=== PATIENT | male | born 1955 | race Caucasian/White ===

== ENCOUNTER → 2018-05-06 | Outpatient (REF) | payer OTHER | LOC: M LAB REF 17:41 | DX: D21.0 Benign neoplasm of connective and other soft tissue of head, face and neck (principal) ==

== ENCOUNTER 2019-12-15 10:15 | Inpatient (IN) | payer OTHER ==
[~2019-12-15] VITALS: Ht 167.6 cm; Wt 71.2 kg
[2019-12-15] MEDS ORDERED: FENO145T7 PO (10:27)
[2019-12-15] MEDS ORDERED: IBUP-1114 PO (10:27)
[2019-12-15] MEDS ORDERED: FISH1000 PO (10:27)
[2019-12-15] MEDS ORDERED: AMLO2.5C4 PO (10:27)
[2019-12-15] MEDS ORDERED: CENTTAB16 PO (10:27)
[2019-12-15] MEDS ORDERED: PARO40TA2 PO (10:27)
[2019-12-15] MEDS ORDERED: CETI5SOL3 PO (10:27)
[2019-12-15 11:25] LABS: BASO # 0.1 10^3/uL (0.0-0.2); BASO % 1.2 % (0.0-1.0); EOS # 0.2 10^3/uL (0.0-0.5); EOS % 2.4 % (0.0-3.0); HEMATOCRIT 42.2 % (42.0-52.0); HEMOGLOBIN 14.6 g/dl (13.5-17.5); LYMPH # 2.1 10^3/uL (1.5-5.0); LYMPH % 28.9 % (24.0-44.0); MEAN CORPUSCULAR HEMOGLOBIN 30.9 pg (27.0-33.0); MEAN CORPUSCULAR HGB CONC 34.6 g/dl (32.0-36.5); MEAN CORPUSCULAR VOLUME 89.4 fl (80.0-96.0); MONO # 0.4 10^3/uL (0.0-0.8); MONO % 5.9 % (0.0-5.0); NEUTROPHILS # 4.5 10^3/uL (1.5-8.5); NEUTROPHILS % 60.9 % (36.0-66.0); PLATELET COUNT, AUTOMATED 378 10^3/uL (150-450); RED BLOOD COUNT 4.72 10^6/uL (4.30-6.10); WHITE BLOOD COUNT 7.4 10^3/uL (4.0-10.0)
[2019-12-15 11:57] LABS: ALT/SGPT 26 U/L (12-78); BILIRUBIN,DIRECT < 0.1 MG/DL (0.0-0.2); BILIRUBIN,TOTAL 0.7 MG/DL (0.2-1.0); BLOOD UREA NITROGEN 17 MG/DL (7-18); CALCIUM LEVEL 9.8 MG/DL (8.8-10.2); CARBON DIOXIDE LEVEL 25 MEQ/L (21-32); CHLORIDE LEVEL 102 MEQ/L (98-107); CREATININE FOR GFR 0.85 MG/DL (0.70-1.30); GLOMERULAR FILTRATION RATE > 60.0 (>49); GLUCOSE, FASTING 258 MG/DL (70-100); LIPASE 113 U/L (73-393); POTASSIUM SERUM 4.8 MEQ/L (3.5-5.1); SODIUM LEVEL 133 MEQ/L (136-145); TOTAL PROTEIN 7.9 GM/DL (6.4-8.2)
[2019-12-15] MEDS ORDERED: LIDOCAINE 5% (LIDODERM) PATCH TD ONE (12:15)
[2019-12-15] MEDS ORDERED: ACETAMINOPHEN 325 MG TAB PO ONE (12:15)
[2019-12-15] MEDS ORDERED: CYCLOBENZAPRINE 5MG TABLET PO ONE (12:15)
--- NOTE | 2019-12-15 12:34 | REP ---
CT LUMBAR SPINE: 12/15/2019 INDICATION: Low back pain . TECHNIQUE: Nonenhanced axial CT images of the lower lumbar spine were obtained with coronal and sagittal reconstructions provided. COMPARISON: MRI lumbar spine dated 09/13/2016. FINDINGS: There is no acute fracture, subluxation, or dislocation. There is an area of heterogeneous attenuation within the posterosuperior L2 vertebral body which did not correspond to abnormal signal on the previous MRI. Aortoiliac atherosclerotic disease is present. There is no evidence of hemorrhage within the spinal canal or severe spinal canal narrowing. The paraspinal soft tissues are unremarkable with the exception of the atherosclerotic disease. IMPRESSION: No acute fracture or additional acute pathology. Area of heterogeneous attenuation within the L2 vertebral body for which gadolinium enhanced MRI is recommended for further evaluation as neoplasm is not excluded. Aortoiliac atherosclerotic disease. Electronically Signed by Dread Bright DO 12/17/2019 08:37 A
--- NOTE | 2019-12-15 14:16 | REP ---
REASON: Bilateral hip pain. PRIORS: None. AP pelvis and two views of each hip were obtained. AP PELVIS: There is no acute fracture. Asymmetric hip joint space narrowing is seen bilaterally with bilateral femoral head cam deformities. Two views of the right hip show a cam deformity with asymmetric hip joint space narrowing without buttressing, fracture, or dislocation. Two views of the left hip shows asymmetric hip joint space narrowing with a cam deformity without buttressing, fracture, or dislocation. IMPRESSION: Chronic changes. Electronically Signed by Chivo Cueto DO 12/15/2019 05:05 P
--- NOTE | 2019-12-15 14:25 | REP ---
KUB: History of constipation and lower abdominal pain. The latest prior for comparison is 06/03/2005. FINDINGS: KUB shows the intestinal gas pattern to be nonspecific. The organ silhouettes insofar as delineated are unremarkable. There is no evidence of free intraperitoneal air. The stool pattern is within normal limits. IMPRESSION: Nonspecific. Electronically Signed by Chivo Cueto DO 12/15/2019 05:05 P
[2019-12-15] MEDS ORDERED: PROHANCE 279.3MG/ML 15ML VIAL As Ordered ONE (15:07)
--- NOTE | 2019-12-15 15:59 | REP ---
MRI LUMBAR SPINE: 12/15/2019 INDICATION: Low back pain. COMPARISON: CT lumbar spine completed earlier today. TECHNIQUE: Multiplanar short and long TR sequences of the lumbar spine were performed including post-gadolinium imaging. FINDINGS: Heterogenous abnormal signal is present within the L2 vertebral body as well as centrally within L5 with corresponding pathologic gadolinium enhancement. There are no areas of impression deformities of the vertebral bodies. No focal disc herniations are present. Endplate degenerative sequelae are noted at L4-5. These disc bulges are present at L4-5 and L5-S1 without severe spinal canal or neural foraminal narrowing. No significant paraspinal soft tissue abnormalities are detected. Intraosseous hemangioma is present within the posterior aspect of the T12 vertebral body. IMPRESSION: Abnormal marrow signal and corresponding pathologic gadolinium enhancement within L2 and L5 concerning for metastases. Metastatic workup by imaging is recommended. No significant spinal canal or neural foraminal narrowing. Electronically Signed by Dread Bright DO 12/17/2019 08:40 A
[2019-12-15] MEDS ORDERED: ALL10TAB3 PO (17:01)
[2019-12-15] MEDS ORDERED: LOTR5CAP2 PO (17:01)
[2019-12-15] MEDS ORDERED: NEXI20CA PO (17:01)
[2019-12-15] MEDS ORDERED: TRIC145T22 PO (17:01)
[2019-12-15] MEDS ORDERED: ISOVUE-370 76% 100ML VIAL As Ordered ONE (17:29)
[2019-12-15 17:37] LABS: TOTAL PROTEIN 7.7 GM/DL (6.4-8.2)
--- NOTE | 2019-12-15 18:06 | HPEPDOC ---
General Date of Admission Dec 15, 2019 at 17:17 Date of Service: Dec 15, 2019 Chief Complaint The patient is a 64-year-old male Who presented to the ER after experiencing back pain History of Present Illness Patient is a 64-year-old male with a past medical history of hypertension, anemia, anxiety, depression and seasonal allergies who presented to the emergency room after experiencing back pain. Patient was that he expenses lower back pain for the last 3 months. Hes been having difficulty with sleep because of the worsening pain on arrival. Patients back pain was noted to be 7-9/10 and had improved to 4-5/10 after receiving muscle relaxant. Patient says the pain is constant, achy with radiation to the bilateral flanks. Denies any alleviating or activating factors. Patient denies any chest pain, short of breath, cough, fevers, chills, nausea, vomiting, abdominal pain, diarrhea, or urinary discomfort. Patient does report difficulty with urination and does report occasional constipation. Patient has reported 25 pound weight loss since June. Reports that he has ch anged his diet to something more healthy. Home Medications Scheduled Amlodipine Besylate/Benazepril (Lotrel 5-10 mg Capsule) 1 Each Capsule, 1 CAP PO DAILY, (Reported) Cetirizine HCl (All Day Allergy) 10 Mg Tablet, 10 MG PO DAILY, (Reported) Esomeprazole Magnesium (Nexium) 20 Mg Capsule.dr, 20 MG PO DAILY, (Reported) Fenofibrate Nanocrystallized (Tricor) 145 Mg Tablet, 145 MG PO DAILY, (Reported) Ibuprofen (Ibuprofen) 400 Mg Tablet, 400 MG PO TID for fever, (Reported) Multivit-Min/FA/Lycopen/Lutein (Centrum Silver Ultra Men's Tab) 1 Each Tablet, 1 TAB PO DAILY, (Reported) [place]-3 Fatty Acids/Fish Oil (Fish Oil 1,000 mg Capsule) 1 Each Capsule, 1 CAP PO DAILY, (Reported) Paroxetine HCl (Paroxetine HCl) 40 Mg Tablet, PO DAILY, (Reported) Allergies Coded Allergies: Penicillins (Verified Allergy, Unknown, 12/15/19) Past Medical History Medical History Hypertension, anemia, anxiety, depression and seasonal allergies Surgical History Tonsillectomy Bilateral knee arthroscopy for meniscus repair Family History - Father with a history of skin cancer Social History - Denies the use of illicit drugs - Patient reports that he drinks 6 beers over the course of the week - Reports that hes a prior smoker and quit in 1985 - Denies recent travel or sick contacts - Lives with Review of Systems Other systems 10 point review of systems complete, all negative otherwise stated in HPI Vital Signs - Vitals: BP 149/76, HR 88, RR 16, Sat 96%RA, Temp 97.4F - General: Lying in bed, No acute distress, Speaking in full sentences, Awake / Alert - HEENT: NC, AT, PERRLA - CVS: RRR, +S1S2 - Lungs: Fair air entry bilaterally, No appreciable wheezing / rales / rhonchi - Abdomen: Soft, Non-distended, Non-tender - Extremities: No lower extremity edema, No calf tenderness - Neuro: No focal motor or sensory deficit - Skin: No visible rashes Laboratory Data Labs 24H Laboratory Tests 2 12/15/19 11:09: Immature Granulocyte % (Auto) 0.7, Neutrophils (%) (Auto) 60.9, Lymphocytes (%) (Auto) 28.9, Monocytes (%) (Auto) 5.9H, Eosinophils (%) (Auto) 2.4, Basophils (%) (Auto) 1.2H, Neutrophils # (Auto) 4.5, Lymphocytes # (Auto) 2.1, Monocytes # (Auto) 0.4, Eosinophils # (Auto) 0.2, Basophils # (Auto) 0.1, Nucleated Red Blood Cells % (auto) 0.0, Anion Gap 6L, Glomerular Filtration Rate > 60.0, Calcium Level 9.8, Total Bilirubin 0.7, Direct Bilirubin < 0.1, Aspartate Amino Transf (AST/SGOT) 40H, Alanine Aminotransferase (ALT/SGPT) 26, Alkaline Phosphatase 124H, Total Protein 7.9, Albumin 4.0, Albumin/Globulin Ratio 1.0, Lipase 113 12/15/19 12:46: Urine Color YELLOW, Urine Appearance CLEAR, Urine pH 5.0, Urine Specific [place] 1.033, Urine Protein NEGATIVE, Urine Glucose (UA) 3+H, Urine Ketones TRACEH, Urine Blood NEGATIVE, Urine Nitrite NEGATIVE, Urine Bilirubin NEGATIVE, Urine Urobilinogen 0.2, Urine Leukocyte Esterase NEGATIVE, Urine WBC (Auto) 2, Urine RBC (Auto) 2, Urine Hyaline Casts (Auto) 0, Urine Bacteria (Auto) NEGATIVE, Ur ine Squamous Epithelial Cells 0, Urine Mucus (Auto) SMALL, Urine Sperm (Auto) CBC/BMP Laboratory Tests 12/15/19 11:09 Plan / VTE VTE Prophylaxis Ordered?: Yes Plan Plan Acute on Chronic intractable back pain - Patient presented to the emergency room after experiencing worsening back pain over the course of 3 months - He has reported weight loss of approximately 25 pounds since June - No loss of control of bowel or bladder - Hemodynamically stable and afebrile - Physical without any focal neurologic deficits - CT Lumbar spine 12/14: No acute fracture or additional acute pathology. Area of heterogeneous attentuation within the L2 vertebral body for which gadolinium enhanced MRI is recommended for further evaluation as neoplasm is not excluded. Aortoiliac atherosclerotic disease. - MRI Lumbar spine 12/14: Abnormal marrow signal and corresponding pathologic gadolinium enhancement within L2 and L5 concerning for metastases. Metastatic workup by imaging is recommended. No significant spinal canal or neural foraminal narrowing. - Imaging findings were discussed with patient the possibility of malignancy was reported; she has verbalized understanding - Patient has received screening colonoscopy one year ago at [facility] had followed up for biopsy results of a few polyps that were reported to be negative - Will get CT chest, abdomen and pelvis with contrast / PSA - Will continue with pain control with Percocet and muscle relaxants - Consulted oncology; Dr. Mederos; appreciate their input Hypertension - BP well controlled - c/w Amlodipine / Benazepril with holding parameters Anemia Anxiety / Depression - c/w Paroxetine Seasonal allergies - c/w Cetirizine GERD - c/w Esomeprazole DVT prophylaxis - Will start QI Hoover MD Dec 15, 2019 17:33
[2019-12-15 18:13] LABS: INR 0.99; PROTHROMBIN TIME 12.8 SECONDS (11.8-14.0)
--- NOTE | 2019-12-15 18:29 | REPVR ---
PROCEDURE INFORMATION: Exam: CT Abdomen And Pelvis With Contrast Exam date and time: 12/15/2019 5:48 PM Age: 64 years old Clinical indication: Abdominal pain; Generalized; Additional info: Evaluate for malignancy TECHNIQUE: Imaging protocol: Computed tomography of the abdomen and pelvis with intravenous contrast. Radiation optimization: All CT scans at this facility use at least one of these dose optimization techniques: automated exposure control; mA and/or kV adjustment per patient size (includes targeted exams where dose is matched to clinical indication); or iterative reconstruction. Contrast material: ISOVUE 370; Contrast volume: 100 ml; Contrast route: INTRAVENOUS (IV); COMPARISON: CR HIPS BILAT W-AP PELVIS 12/15/2019 12:49 PM FINDINGS: Lungs: 2 mm pleural based nodule right middle lobe (series 205, image 2). 2 mm pleural based nodule right lower lobe (series 205, image 9). Liver: There are multiple (too numerous to count) lesions noted scattered throughout the liver. Gallbladder and bile ducts: Normal. No calcified stones. No ductal dilation. Pancreas: There is a mass noted within the tail of the pancreas measuring 2.4 by 3.5 by 3 centimetres. Spleen: 1.6 cm accessory spleen inferior to the splenic hilum. Adrenals: Normal. No mass. Kidneys and ureters: Less than 5 mm low-density lesion lower pole left kidney too small to characterize fully. Stomach and bowel: Scattered colonic diverticula. No obstruction. No mucosal thickening. Appendix: No evidence of appendicitis. Intraperitoneal space: Unremarkable. No free air. No significant fluid collection. Vasculature: There is occlusion of the splenic vein at the level of the body and tail of pancreas. Lymph nodes: Scattered subcentimeter retroperitoneal lymph nodes. Bladder: Contrast present within the bladder. Reproductive: Prostate projects into the bladder base measuring 4.4 by 4.8 by 4.3 cm. Bones/joints: Osteoblastic lesion noted within the L2 vertebral body. Compression deformity noted of T9 with approximately 30% loss of height. Sclerotic focus noted in the right ilium superior to the sacroiliac joint. Soft tissues: Unremarkable. IMPRESSION: 1. Mass in the tail the pancreas with multiple liver lesions. The appearance suggests a metastatic pancreatic carcinoma. 2. 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 3. Osseous metastases suggested at L2 and the right ilium. 4. Less than 5 mm low-density lesion lower pole left kidney too small to characterize fully. MR might be considered if clinically relevant. 5. The prostate is enlarged. Correlate with serum PSA if clinically relevant. 6. Two small pulmonary nodules.For patients at low risk (minimal or absent history of smoking and of other known risk factors), no routine follow-up is indicated. For patients at high risk (history of smoking or of other known risk factors), consider optional CT Chest at 12 months. Dori Nolasco, Fleischner Society, 2017. COMMENTS: Consistent with the [employer]'s Incidental Findings Committee white paper (J Am Joseph Radiol 2018): Any incidental renal lesion less than 1.0 cm or classified as too small to characterize, or any incidental cystic renal lesion characterized as simple-appearing, is likely benign. No follow-up imaging is recommended for these lesions per consensus recommendations based on imaging criteria. Electronically signed by: Kimberly Keating On 12/15/2019 18:29:17 PM
--- NOTE | 2019-12-15 18:43 | REPVR ---
PROCEDURE INFORMATION: Exam: CT Chest With Contrast Exam date and time: 12/15/2019 5:48 PM Age: 64 years old Clinical indication: Chest pain; Additional info: Evaluate for malignancy TECHNIQUE: Imaging protocol: Computed tomography of the chest with intravenous contrast. Radiation optimization: All CT scans at this facility use at least one of these dose optimization techniques: automated exposure control; mA and/or kV adjustment per patient size (includes targeted exams where dose is matched to clinical indication); or iterative reconstruction. Contrast material: ISOVUE 370; Contrast volume: 100 ml; Contrast route: INTRAVENOUS (IV); COMPARISON: No relevant prior studies available. FINDINGS: Lungs: 2 mm pleural based nodule right lower lobe (series 201, image 60). 3.7 mm pleural based nodule right middle lobe (series 201, image 53). Coarse linear density in the lingula. 2.5 mm subsolid nodule left upper lobe (series 201, image 51). 5 mm pleural based nodule left lower lobe (series 201, image 41). Pleural space: . Heart: Unremarkable. No cardiomegaly. No pericardial effusion. Aorta: Unremarkable. No aortic aneurysm. Lymph nodes: Unremarkable. No enlarged lymph nodes. Liver: Multiple liver masses. Pancreas: 2.8 mm cm mass in the pancreas. Stomach and bowel: The mass directly abuts the inferior aspect of the adjacent stomach. Local invasion should be considered. Bones/joints: Compression fractures noted at T7 and T9. Vertebral hemangioma suggested at T6. Sclerotic vertebra at L2 Soft tissues: Unremarkable. IMPRESSION: 1. Bilateral pulmonary nodules as described above .Fleischner follow up recommendations for incidental nodules are not indicated. Follow up per patient's medical condition. 2. Metastatic disease to the liver likely secondary to pancreatic primary. Local invasion of the adjacent stomach by the pancreatic mass is suggested. 3. Osseous metastatic disease at L2 Electronically signed by: Kimberly Keating On 12/15/2019 18:42:43 PM
[2019-12-15 18:44] VITALS: BP 156/75
[2019-12-15] MEDS: ACETAMINOPHEN TAB 650MG DOSE (2X325MG) PO PRN (19:20)
[2019-12-15] MEDS ORDERED: **NOTE PATIENT COMMENT** MISC XX SCH (21:00)
[2019-12-15] MEDS ORDERED: RAMELTEON 8 MG TAB (ROZEREM) PO PRN (21:00)
[2019-12-15] MEDS ORDERED: MIRALAX *UNIT DOSE* 17GM PACKET PO PRN (21:00)
--- NOTE | 2019-12-15 21:06 | MEDONCPDOC ---
Medical Oncology Office Note Date of Service: Dec 15, 2019 Diagnosis/Treatment History Diagnoses: Pancreatic mass with metastases to liver and bones Interval History History of present illness: I had the pleasure of seeing Mr. Tiburcio Simms in consultation for pancreatic mass and metastatic disease to the liver and the bones. As you know, Mr. 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 He has hypertension and borderline diabetes. Otherwise, he has been quite a good health. For last 3 months he has been having low back pain and pain was getting worse on the scale of 0-10. Pain was 7-9 and some time radiating down to the flank area. Patient has 25 pounds weight loss over the last 3 months. He was using [id number] Motrin and Tylenol, but pain was getting worse. Today, his pain was worse and ended up in emergency room, at 10 AM. Various investigations were done. Abdominal CT revealed 2.4 x 3.5 cm mass in the pancreatic tail with multiple liver lesions. Splenic vein was occluded at the level of pancreatic mass. There are osseous lesion at L2 and compression deformity at T9. MRI of the spine done on November revealed osteoblastic lesion at L2 and L5 level. Currently, patient is slightly anxious but overall his composed. He has been able to perform his daily function. He was unable to sleep because of his pain. His breathing is good. He has no cough and wheezing. Denies chest pain, palpitation, PND or orthopnea. He does not have headache, dizziness or blackouts. He has no urinary symptoms. Allergies Coded Allergies: Penicillins (Verified Allergy, Unknown, 12/15/19) Home Medications Reported Medications Esomeprazole Magnesium (Nexium) 20 Mg Capsule.dr, 20 MG PO DAILY, CAP 12/15/19 Cetirizine HCl (All Day Allergy) 10 Mg Tablet, 10 MG PO DAILY, TAB 12/15/19 Fenofibrate Nanocrystallized (Tricor) 145 Mg Tablet, 145 MG PO DAILY, TAB 12/15/19 Amlodipine Besylate/Benazepril (Lotrel 5-10 mg Capsule) 1 Each Capsule, 1 CAP PO DAILY, CAP 12/15/19 Ibuprofen (Ibuprofen) 400 Mg Tablet, 400 MG PO TID for fever for 10 Days, #30 TAB 12/15/19 Multivit-Min/FA/Lycopen/Lutein (Centrum Silver Ultra Men's Tab) 1 Each Tablet, 1 TAB PO DAILY for 30 Days, #30 TAB 12/15/19 [place]-3 Fatty Acids/Fish Oil (Fish Oil 1,000 mg Capsule) 1 Each Capsule, 1 CAP PO DAILY for 30 Days, #30 CAP 12/15/19 Paroxetine HCl (Paroxetine HCl) 40 Mg Tablet, PO DAILY 12/15/19 Discontinued Reported Medications Cetirizine Hcl (Cetirizine HCl) 1 Mg/1 Ml Solution, 5 MG PO, MARIBELL 12/15/19 Past Medical History Past Medical History: Past medical history is significant for both knee meniscus surgery and more alert the back removed. He also had tonsillectomy in the past. Past Surgical History: Tonsillectomy, meniscus surgery for both knees. Skin mole removed from the back. Family History: Patient has one brother and 3 sisters. One sister who is 69 and has history of breast cancer. Older sister has a history of esophageal and stomach cancer and is being getting treated. Older brother. He is diabetic and had mini stroke. Social History: He used to smoke but quit smoking in 1985. He smoked for 9 years, 1 pack per day. He drinks 6 bottles of beer per week. He is allergic to penicillin which causes a rash. He was twice and lives with his second . He has 3 daughters and 4 grandkids. Review of Systems General: Reports: Other Symptoms (pain in the back quite bothersome.); Denies: ROS Unobtainable, Chills, Night Sweats, Fatigue, Malaise, Normal Appetite Constitutional: Reports: Weight Loss (patient lost about 20 pounds over the last 3 months.); Denies: ROS Unabtainable, Chills, Fever, Malaise, Night Sweats, Weakness, Fatigue, Lethargy, Normal appetite, Other symptoms Eyes: Denies: Pain, Vision change, Conjunctivae inflammation, Eyelid inflammati on, Redness, Other HEENT: Denies: Head Aches, Ear Pain, Dysphagia, Sinus Congestion, Post Nasal Drip, Sore Throat, Epistaxis, Other Symptoms Skin: Denies: Rash, Lesions, Jaundice, Bruising, Other Pulmonary: Denies: Dyspnea, Cough, Pleuritic Chest Pain, Other Symptoms Cardiovascular: Denies: Chest Pain, Palpitations, Orthopnea, Paroxysmal Noc. Dyspnea, Edema, Lt Headedness, Other Symptoms Gastrointestinal: Denies: Nausea, Vomiting, Abdominal Pain, Diarrhea, Constipation, Melena, Hematochezia, Other Symptoms Genitourinary: Denies: Dysuria, Frequency, Incontinence, Hematuria, Retention, Other Symptoms Hematologic: Denies: Bruising, Bleeding Excessively, Petecchia, Purpura, Enlarged Lymph Nodes, Other Hematologic Endocrine: Denies: Polydipsia, Polyphagia, Polyuria, Heat Intolerance, Cold Intolerance, Other Endocrine Sx Musculoskeletal: Reports: Joint pain (pain in both knees due to arthritis.), Other (back pain. This is getting worse.); Denies: Neck pain, Shoulder pain, Arm pain, Back pain, Hand pain, Leg pain, Foot pain, Muscle pain, Spasms, Gout, Joint sweling, Muscle stiffness, Midtho racic pain Neurological: Denies: Weakness, Numbness, Incoordination, Change in Speech, Confusion, Seizures, Other Symptoms Psych: Denies: Mood Normal, Anxiety, Depression, Memory Issues, Thoughts of Self Harm, Anger, Thoughts of harming Other, Other Psych Physical Examination General Exam: Negative: Alert, Cooperative, No Acute Distress, Mild Distress, Moderate Distress, Severe Distress, Oriented Times Three, Other Eye Exam: Negative: PERRLA, Conjunctiva & lids normal, EOMI, Sclera icteric, Ptosis, Other Eye Symptoms ENT EXAM: Negative: Atraumatic, Mucous membr. moist/pink, Pharynx Normal, Tongue Midline, Pharyngeal Edema, Nares Patent, Tympanic Membranes Normal, Ext Auditory Canal Nml, Pinna Normal, Other ENT Neck Exam: Denies: Supple, JVD, Thyromegaly, +2 carotid pulse wo bruit, Lymphadenopathy, Other Chest Exam: Negative: Clear to auscultation, Normal air movement, Rales, Rhonchi, Wheezing, Diminished, Other Heart Exam: Negative: Rate Normal, Tachycardic, Bradycardic, Regular Rhythm, Irregular Rhythm, Normal S1, Normal S2, Gallops, Murmurs, Rubs, Other Abdomen Exam: Negative: Normal bowel sounds, BS Hyperactive, BS Hypoactive, Soft, Tenderness, Hepatospenomegaly, Mass, Hernia, Other Male Exam: Negative: Normal Genital Exam, Lesions, Edema, Erythema, Tenderness, Discharge, Mass, Hernia, Normal Prostate, Normal Sphincter Tone Extremity Exam: Negative: Clubbing, Cyanosis, Edema, Normal pulses, Tenderness, Swelling, Other Skin Exam: Negative: Nl turgor and temperature, Rash, Breakdown, Lesion, Pru ritus, Other skin issue Neuro Exam: Negative: Normal Gait, Normal Speech, Strength at 5/5 X4 ext, Normal Tone, Sensation Intact, Cranial Nerves 3-12 NL, Reflexes 2+, Other Psych Exam: Negative: Mental status NL, Mood NL, Anxiety, Memory Intact, Oriented x 3, Other Ht / Wt Ht / Wt Height:5 Feet 6 Inches Weight: 71.200 Kg Vital Signs Vital Signs Date Time Temp Pulse Resp B/P (MAP) Pulse Ox O2 Delivery O2 Flow Rate FiO2 12/15/19 18:44 97.4 95 18 156/75 (102) 96 Room Air Laboratory Data Laboratory Tests Test 12/15/19 11:09 Blood Urea Nitrogen 17 MG/DL (7-18) Creatinine 0.85 MG/DL (0.70-1.30) Glomerular Filtration Rate > 60.0 (>49) Fasting Glucose 258 MG/DL (70-100) H Calcium Level 9.8 MG/DL (8.8-10.2) Total Bilirubin 0.7 MG/DL (0.2-1.0) Aspartate Amino Transf (AST/SGOT) 40 U/L (7-37) H Alanine Aminotransferase (ALT/SGPT) 26 U/L (12-78) Total Protein 7.9 GM/DL (6.4-8.2) Sodium Level 133 MEQ/L (136-145) L Albumin 4.0 GM/DL (3.2-5.2) Alkaline Phosphatase 124 U/L (45-117) H Potassium Level 4.8 MEQ/L (3.5-5.1) Chloride Level 102 MEQ/L (98-107) Carbon Dioxide Level 25 MEQ/L (21-32) Anion Gap 6 MEQ/L (8-16) L Lipase 113 U/L (73-393) Laboratory Tests 12/15/19 11:09 Assessment/Plan Mr. Simms is a 64-year-old white gentleman who has history of back pain for last 3 months. He ended up in the emergency room today and CT scans of the chest, abdomen and pelvis revealed a mass in the tail of the pancreas with metastatic disease to the liver and 2 vertebral column. Patient is likely have metastatic pancreatic carcinoma which needs to be confirmed. A CT-guided biopsy of the liver lesion will be ordered and it should be done tomorrow. Patient blood will be checked for CA 199. He was explained about the possibilities and most likely he has metastatic pancreatic cancer. We'll discuss the prognosis and treatment, once we have the final diagnosis after biopsy. If patient is comfortable, he may be able to go home after biopsy procedure, to be followed up as outpatient. Patient was given ample time to ask questions which were answered to his satisfaction. CC TO: Primary Care Provider: Jr Israel Collins Referring Provider: ANDRES BYRNE MD Dec 15, 2019 21:05
[2019-12-15] MEDS: CYCLOBENZAPRINE 10MG TABLET PO PRN (21:29)
[2019-12-15 22:00] VITALS: BP 145/73
[2019-12-15] MEDS: PERCOCET 5MG/325MG TAB PO PRN (23:23)
[2019-12-16 06:00] VITALS: BP 138/68
[2019-12-16] MEDS: PERCOCET 5MG/325MG TAB PO PRN ×2 (06:16→15:50)
[2019-12-16 06:32] LABS: BASO # 0.1 10^3/uL (0.0-0.2); EOS # 0.2 10^3/uL (0.0-0.5); EOS % 2.8 % (0.0-3.0); HEMATOCRIT 40.9 % (42.0-52.0); HEMOGLOBIN 13.9 g/dl (13.5-17.5); LYMPH # 2.6 10^3/uL (1.5-5.0); LYMPH % 29.9 % (24.0-44.0); MEAN CORPUSCULAR VOLUME 91.1 fl (80.0-96.0); MONO # 0.6 10^3/uL (0.0-0.8); MONO % 6.6 % (0.0-5.0); NEUTROPHILS # 5.1 10^3/uL (1.5-8.5); NEUTROPHILS % 58.9 % (36.0-66.0); PLATELET COUNT, AUTOMATED 315 10^3/uL (150-450); RED BLOOD COUNT 4.49 10^6/uL (4.30-6.10); WHITE BLOOD COUNT 8.7 10^3/uL (4.0-10.0)
[2019-12-16 06:52] LABS: BLOOD UREA NITROGEN 14 MG/DL (7-18); CALCIUM LEVEL 9.3 MG/DL (8.8-10.2); CARBON DIOXIDE LEVEL 30 MEQ/L (21-32); CHLORIDE LEVEL 102 MEQ/L (98-107); CREATININE FOR GFR 0.92 MG/DL (0.70-1.30); GLOMERULAR FILTRATION RATE > 60.0 (>49); GLUCOSE, FASTING 204 MG/DL (70-100); MAGNESIUM LEVEL 2.1 MG/DL (1.8-2.4); POTASSIUM SERUM 4.4 MEQ/L (3.5-5.1); SODIUM LEVEL 138 MEQ/L (136-145)
[2019-12-16] MEDS ORDERED: PARoxetine 20 MG TAB PO SCH (09:00)
[2019-12-16] MEDS ORDERED: MULTIVITAMINS/MINERALS THERAP 1 TAB PO SCH (09:00)
[2019-12-16] MEDS ORDERED: amLODIPine 5 MG TAB PO SCH (09:00)
[2019-12-16] MEDS ORDERED: FENOFIBRATE 145 MG TAB (TRICOR) PO SCH (09:00)
[2019-12-16] MEDS ORDERED: ENOXAPARIN 40MG/0.4ML SYRINGE (J1650 PER 10MG) SC SCH (09:00)
[2019-12-16] MEDS ORDERED: PANTOPRAZOLE 40MG TAB (PROTONIX) PO SCH (09:00)
[2019-12-16] MEDS ORDERED: BENAZEPRIL 5 MG TAB PO SCH (09:00)
[2019-12-16] MEDS ORDERED: CETIRIZINE (ZyrTEC) 10 MG TAB PO SCH (09:00)
[2019-12-16] MEDS ORDERED: ZOFR4TAB16 PO (10:13)
[2019-12-16 10:35] VITALS: BP 138/68
[2019-12-16] MEDS: CYCLOBENZAPRINE 10MG TABLET PO PRN (10:40)
[2019-12-16] MEDS: ACETAMINOPHEN TAB 650MG DOSE (2X325MG) PO PRN (10:41)
[2019-12-16] MEDS ORDERED: OXYC-1 PO ×2 (11:00→11:02)
[2019-12-16 14:00] VITALS: BP 140/66
[2019-12-16] MEDS ORDERED: LIDOCAINE 1% MDV 20ML VIAL As Ordered ONE (14:45)
[2019-12-16 15:45] VITALS: BP 130/62
[2019-12-16 16:15] VITALS: BP 120/50
--- NOTE | 2019-12-16 17:17 | REP ---
ULTRASOUND-GUIDED LIVER BIOPSY The procedure was performed under the direct supervision of Dr. Aly. The patient has a history of multiple liver lesions seen on a previous CT scan dated 12/15/2019. The risks and benefits of the procedure were explained to the patient and informed consent was obtained. The lesion in the right lobe of the liver was localized using ultrasound guidance. The skin was prepped and draped in a sterile fashion. 1% lidocaine was used as a local anesthetic. Using ultrasound guidance a 19/20 gauge coaxial needle biopsy system was inserted and advanced into the lesion. Six core biopsy samples were obtained and sent to lab. The patient tolerated the procedure well and there were no immediate complications. After the appropriate amount of monitored convalescence the patient was discharged from the department. Electronically Signed by MARIBEL Goldstein 12/16/2019 03:48 P Electronically Signed by Mihai Aly MD 12/16/2019 05:07 P
--- NOTE | 2019-12-16 18:04 | DS.PDOC ---
Discharge Summary General Date of Admission Dec 15, 2019 at 17:17 Date of Discharge 12/16/2019 Discharge Summary PROCEDURES PERFORMED DURING STAY: IR liver biopsy ADMITTING DIAGNOSES: 1. Acute on Chronic intractable back pain 2. Hypertension 3. Anemia 4. Anxiety/Depression 5. Seasonal allergies DISCHARGE DIAGNOSES: 1. 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 Acute on chronic intractable back pain 2/2 malignancy metastases to lumbar spine 3. Hypertension 4. Anemia 5. Anxiety/Depression 6. Seasonal allergies COMPLICATIONS/CHIEF COMPLAINT: Severe low back pain/Malignant Neoplasm Metastatic To Lumbar Spine. HISTORY OF PRESENT ILLNESS: Patient is a 64 yo male with a PMH of hypertension, anemia, anxiety, depression and seasonal allergies presented to [facility] ER d/t severe low back pain for the past 3 months with difficulty sleeping d/t pain. Upon arrival, his pain was 7-9/10 which improved to 4-5/10 after receiving muscle relaxant. Pain was described as constant, achy with radiation to the bilateral flanks without alleviating or activating factors. Patient denies any chest pain, short of breath, cough, fevers, chills, nausea, vomiting, abdominal pain, diarrhea, but reported difficulty with urination and does report constipationX1 month. He reported 25 pound weight loss since June which he attributed to diet change. HOSPITAL COURSE: Pt was found to have pancreatic mass with possible metastases to liver, stomach, and lumbar spine. He was also found to have 2 lung nodules with 1 small lesion in left kidney. Oncology was consulted and pt went under IR procedure for liver biopsy today. He is determined stable to be discharge home with pain control medication as needed and outpatient follow up with oncology. DISCHARGE MEDICATIONS: Please see below. ALLERGIES: Please see below. PHYSICAL EXAMINATION ON DISCHARGE: VITAL SIGNS: Please see below. General Exam: Alert, Cooperative, No Acute Distress HEENT: Atraumatic, Mucous membr. moist/pink, Mild scleral icterus b/l Chest Exam: CTA b/l, no rales, rhonchi, or wheezing, good air entry b/l Heart Exam: RRR, no murmur, normal S1 and S2 Abdomen Exam: Soft, no guarding or distention. No tenderness upon palpation in all 4 quadrants. No caput medusa or spider angiomata Extremity Exam: No obvious swelling or edema Skin Exam: Erythema ab igne on lower back Neuro Exam: Normal Gait, Normal Speech, Normal Tone, Psych Exam: Mental status and cognitive function wnl. Mild anxiety, Memory Intact LABORATORY DATA: Please see below. IMAGING: CT lumbar spine showed heterogeneous attentuation within the L2 vertebral body cannot exclude neoplasm; aortoiliac atherosclerotic disease KUB nonspecific B/l hip with pelvis X ray showed no acute changes Lumbar MRI showed questionable metastasis in L2 and L5 Chest CT showed bilateral pulmonary nodules; metastatic disease to the liver likely secondary to pancreatic primary. Local invasion of the adjacent stomach by the pancreatic mass; metastatic at L2 spine CT abd/pelvis with contrast showed mass pancreas tails with multiple liver lesions; suggesting a metastatic pancreatic carcinoma. 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 Osseous metastases suggested at L2 and the right ilium. Less than 5 mm lesion lower pole left kidney. Enlarged prostate. Two small pulmonary nodules PROGNOSIS: [Poor] ACTIVITY: [As tolerated]. DIET: [As tolerated] DISCHARGE PLAN AND INSTRUCTIONS: 1. Follow up with PCP in 7 days 2. Establish care with oncologist ITEMS TO FOLLOWUP ON ON OUTPATIENT: 1. Pancreatic tail mass with likely liver and stomach metastases as well as lumbar spine 2. Pulmonary nodules 3. Left kidney less than 5mm lesion 4. Enlarged prostate 5. CA 19-9 level DISCHARGE CONDITION: [Stable]. TIME SPENT ON DISCHARGE: Greater than [32] minutes. Vital Signs/I&Os Vital Signs Date Time Temp Pulse Resp B/P (MAP) Pulse Ox O2 Delivery O2 Flow Rate FiO2 12/16/19 16:20 18 98 Room Air 12/16/19 16:15 97.8 64 120/50 (73) I&O- Last 24 Hours up to 6 AM 12/16/19 06:00 Intake Total 600 ml Output Total 0 ml Balance 600 ml Laboratory Data Labs 24H Laboratory Tests 2 12/16/19 05:57: Immature Granulocyte % (Auto) 0.8, Neutrophils (%) (Auto) 58.9, Lymphocytes (%) (Auto) 29.9, Monocytes (%) (Auto) 6.6H, Eosinophils (%) (Auto) 2.8, Basophils (%) (Auto) 1.0, Neutrophils # (Auto) 5.1, Lymphocytes # (Auto) 2.6, Monocytes # (Auto) 0.6, Eosinophils # (Auto) 0.2, Basophils # (Auto) 0.1, Nucleated Red Blood Cells % (auto) 0.0, Anion Gap 6L, Glomerular Filtration Rate > 60.0, Calcium Level 9.3, Magnesium Level 2.1 CBC/BMP Laboratory Tests 12/16/19 05:57 Discharge Medications Scheduled Amlodipine Besylate/Benazepril (Lotrel 5-10 mg Capsule) 1 Each Capsule, 1 CAP PO DAILY, (Reported) Cetirizine HCl (All Day Allergy) 10 Mg Tablet, 10 MG PO DAILY, (Reported) Esomeprazole Magnesium (Nexium) 20 Mg Capsule.dr, 20 MG PO DAILY, (Reported) Fenofibrate Nanocrystallized (Tricor) 145 Mg Tablet, 145 MG PO DAILY, (Reported) Ibuprofen (Ibuprofen) 400 Mg Tablet, 400 MG PO TID for fever, (Reported) Multivit-Min/FA/Lycopen/Lutein (Centrum Silver Ultra Men's Tab) 1 Each Tablet, 1 TAB PO DAILY, (Reported) [place]-3 Fatty Acids/Fish Oil (Fish Oil 1,000 mg Capsule) 1 Each Capsule, 1 CAP PO DAILY, (Reported) Paroxetine HCl (Paroxetine HCl) 40 Mg Tablet, PO DAILY, (Reported) Scheduled PRN Ondansetron HCl (Zofran) 4 Mg Tablet, 4 MG PO Q6-8HP PRN for nausea/vomiting Oxycodone Hcl (Oxycodone HCl) 15 Mg Tablet, 1 TAB PO QIDP PRN for pain Allergies Coded Allergies: Penicillins (Verified Allergy, Unknown, 12/15/19) GME ATTESTATION GME ATTESTATION My faculty preceptor for this patient encounter was physically present during the encounter and was fully available. All aspects of the patient interview, examination, medical decision making process, and medical care plan development were reviewed and approved by the faculty preceptor. The faculty preceptor is aware and concurs with the plan as stated in the body of this note and will attest to such by his/her cosignature. JUDAH CHAMBERS DO Dec 16, 2019 18:04
[2019-12-17 11:00] LABS: ALBUMIN 4.54 GM/DL (3.29-5.55); ALBUMIN % 58.9 % (55.8-66.1); ALPHA-1-GLOBULIN % 4.7 % (2.9-4.9); ALPHA-1-GLOBULINS 0.36 GM/DL (0.17-0.41); ALPHA-2-GLOBULINS % 13.5 % (7.1-11.8); BETA-1-GLOBULINS % 7.6 % (4.7-7.2); BETA-2-GLOBULINS % 5.5 % (3.2-6.5); GAMMA GLOBULIN % 9.8 % (11.1-18.8)
[2019-12-17 11:01] LABS: ALPHA-2-GLOBULINS 1.04 GM/DL (0.42-0.99); BETA-1-GLOBULINS 0.59 GM/DL (0.28-0.60); BETA-2-GLOBULINS 0.42 GM/DL (0.19-0.55); GAMMA GLOBULINS 0.75 GM/DL (0.65-1.58)
== END 2019-12-16 19:05 | disposition home or self-care (01) | DRG 436 ==
LOC: M ED 10:15 → M ED INP 17:17 → ENRESERV 18:19 → M MSPAV 18:44
PROVIDERS: ADMIT Internal Medicine; ATTEND Internal Medicine
PROC: 0FB13ZX Excision of Right Lobe Liver, Percutaneous Approach, Diagnostic (ICD-10-PCS; principal; 2019-12-16 15:00)
DX: C25.2 Malignant neoplasm of tail of pancreas (principal); C78.7 Secondary malignant neoplasm of liver and intrahepatic bile duct; C79.51 Secondary malignant neoplasm of bone; M54.5 Low back pain; I10 Essential (primary) hypertension; D64.9 Anemia, unspecified; F41.9 Anxiety disorder, unspecified; R63.4 Abnormal weight loss; K21.9 Gastro-esophageal reflux disease without esophagitis; R73.03 Prediabetes; F32.9 Major depressive disorder, single episode, unspecified; J30.2 Other seasonal allergic rhinitis; Z79.899 Other long term (current) drug therapy; Z87.891 Personal history of nicotine dependence; Z86.010 Personal history of colon polyps; Z88.0 Allergy status to penicillin

== ENCOUNTER → 2020-11-18 | Outpatient (CLI) | payer MEDICARE, OTHER ==
[~2020-11-18] MED LIST: ALL10TAB3 PO; AMLO2.5C4 PO; CENTTAB16 PO; CETI5SOL3 PO; FENO145T7 PO; FISH1000 PO; IBUP-1114 PO; LOTR5CAP2 PO; NEXI20CA PO; OXYC-1 PO; PARO40TA2 PO; TRIC145T22 PO; ZOFR4TAB16 PO
--- NOTE | 2020-11-20 14:39 | SLEEPCENT ---
NOCTURNAL POLYSOMNOGRAPHY DATE: 11/18/2020 ORDERED BY: Amadou Simms D.O. Nocturnal polysomnography was performed for the retitration of pressure therapy in this patient with obstructive sleep apnea syndrome. For testing a ResMed N20 nasal mask of medium size was used with a chin strap, 4 cm of water pressure were applied to the circuit, and the lights were extinguished. 8 hours and 52 minutes of data were reviewed. There were 477 minutes of sleep identified. Sleep latency was prolonged at 30.5 minutes. REM latency was quite prolonged at 311.5 minutes. Sleep architecture showed initial poor progression. One REM cycle was seen late in the study. There was minimal fragmentation. Overall sleep efficiency was 90.7%. The electrocardiogram showed a sinus rhythm with occasional PVCs. Average heart rate of 90.7%. EEG showed some coarsening in the background possibly medication related. No focal events were appreciated. Overall normal waveforms for wake and sleep. Respiratory events were found best palliated with CPAP at a pressure of 5 and remaining measures of sleep physiology were normal. IMPRESSION: Obstructive sleep apnea syndrome (G47.33). RECOMMENDATION: Nightly use of pressure therapy 5 cm of water.
== END ==
LOC: M SLEEP 20:00
PROVIDERS: ATTEND Physician Assistant
DX: G47.33 Obstructive sleep apnea (adult) (pediatric) (principal)